=== PATIENT | male | born 1950 | race African-American/Black ===

== ENCOUNTER 2021-05-11 10:53 | Inpatient (IN) ==
[2021-05-11 14:51] LABS: Basophils % 0.4 % (0.0-0.8); Eosinophils # 0.1 10*3/uL (0.0-0.87); Eosinophils % 0.9 % (0.00-10.9); Hematocrit 28.6 VOL% (42.0-52.0); Hemoglobin 9.7 GM/DL (14.0-18.0); Immature Granulocytes % 0.6 %; Immature Granulocytes Absolute 0.06 #; Lymphocytes # 1.4 10*3/uL (1.4-4.0); Lymphocytes % 15.1 % (21.2-54.2); Mean Corpuscular HGB Conc 33.9 GM/DL (32-36); Mean Corpuscular Volume 84.9 FL (87-102); Mean Platelet Volume 8.9 FL (9.6-12.0); Monocytes % 6.6 % (1.7-12.7); Neutrophils % 76.4 % (38.7-73.9); Platelet Count 471 T/CUMM (130-400); Red Blood Count 3.37 MC/CUMM (3.8-5.5); Red Cell Distribution Width 12.9 % (9.3-17.3); White Blood Count 9.5 T/CUMM (4-12)
[2021-05-11 15:20] LABS: Albumin 2.1 G/DL (3.4-5.0); Bilirubin,Total 0.6 MG/DL (0.20-1.00); Calcium 8.1 MG/DL (8.5-10.1); Potassium 3.7 MMOL/L (3.5-5.1); Total Protein 7.9 G/DL (6.4-8.2)
[2021-05-11] MEDS ORDERED: ONDANSETRON 4 MG/2 ML VIAL IV PRN (17:22)
[2021-05-11] MEDS ORDERED: LACTULOSE 20 GM/30 ML UDCUP PO PRN (17:22)
[2021-05-11] MEDS ORDERED: SIMETHICONE CHEW 125 MG TABLET PO PRN (17:22)
[2021-05-11] MEDS ORDERED: DOCUSATE SODIUM 100 MG CAPSULE PO PRN (17:22)
[2021-05-11] MEDS ORDERED: ALBUTEROL 2.5 MG/3 ML NEB RESP TX PRN (17:22)
[2021-05-11] MEDS ORDERED: GLUCAGON 1 MG VIAL IM PRN (17:22)
[2021-05-11] MEDS ORDERED: ALUMINUM/MAGNES/SIMETH MAX STR 30 ML UDCUP PO PRN (17:22)
[2021-05-11] MEDS ORDERED: DEXTROSE 10% 250 ML BAG IV PRN (17:31)
[2021-05-11] MEDS ORDERED: LACTATED RINGERS 1,000 ML IV SCH (18:00)
[2021-05-11 18:39] LABS: Bilirubin,Urine Negative (Negative); Blood, Urine Negative (Negative); Glucose,Urine (UA) 100 mg/dL (Negative); Ketones,Urine Negative (Negative); Nitrite,Urine Negative (Negative); Protein,Urine Negative (Negative); Urine Appearance Clear (Clear); Urine Color Dark Yellow (Yellow); Urine Urobilinogen > 8.0 eU/dL (<2.0)
[2021-05-11 18:41] LABS: Mucus,Urine Occasional /LPF (Occasional); RBC,Urine 2 /HPF (0-4); Squamous Epithelial Cell,Urine Occasional /HPF (0-10)
[2021-05-11 18:46] LABS: Barbiturates Screen,Urine Negative (Negative); Benzodiazepines Screen,Urine Negative (Negative); Cannabinoid Screen,Urine Negative (Negative); Opiate Screen,Urine Negative (Negative); Phencyclidine Screen,Urine Negative (Negative)
[2021-05-11] MEDS: MULTIVITAMIN INJ 10 ML in DEXTROSE 5% NACL 0.45% 1,000 ML IV SCH (21:10)
[2021-05-11] MEDS: LORazepam 2 MG/1 ML VIAL IV PRN (21:11)
[2021-05-11] MEDS ORDERED: OLANZapine 10 MG VIAL IM ONE (21:46)
[2021-05-11] MEDS: HYDROmorphone 1 MG/1 ML SYRINGE IV PRN (21:58)
[2021-05-12] MEDS: HYDROmorphone 1 MG/1 ML SYRINGE IV PRN ×2 (02:42→07:10)
[2021-05-12 05:16] LABS: Basophils # 0.1 10*3/uL (0.0-0.2); Basophils % 0.6 % (0.0-0.8); Eosinophils # 0.1 10*3/uL (0.0-0.87); Eosinophils % 1.5 % (0.00-10.9); Hemoglobin 9.4 GM/DL (14.0-18.0); Immature Granulocytes % 0.5 %; Immature Granulocytes Absolute 0.04 #; Lymphocytes # 1.8 10*3/uL (1.4-4.0); Lymphocytes % 22.2 % (21.2-54.2); Mean Corpuscular HGB Conc 33.6 GM/DL (32-36); Mean Corpuscular Volume 85.6 FL (87-102); Mean Platelet Volume 8.9 FL (9.6-12.0); Monocytes % 9.3 % (1.7-12.7); Neutrophils % 65.9 % (38.7-73.9); Platelet Count 456 T/CUMM (130-400); Red Blood Count 3.27 MC/CUMM (3.8-5.5); Red Cell Distribution Width 12.8 % (9.3-17.3); White Blood Count 8.1 T/CUMM (4-12)
[2021-05-12 05:59] LABS: Alanine Aminotransferase 67 U/L (16-61); Albumin 1.9 G/DL (3.4-5.0); Alkaline Phosphatase 65 U/L (45-117); Aspartate Amino Transferase 135 U/L (0-37); Bilirubin,Total < 0.39 MG/DL (0.20-1.00); Blood Urea Nitrogen 12 MG/DL (7-18); Calcium 7.7 MG/DL (8.5-10.1); Carbon Dioxide 26 MMOL/L (21-32); Estimated Glom Filtration Rate 129 ML/MIN; Glucose 109 MG/DL (74-106); HDL Cholesterol 27 MG/DL (40-60); Osmolality,Calculated 268.2 MOS/KG (273-304); Potassium 3.7 MMOL/L (3.5-5.1); Risk Ratio 3.89; Sodium 134 MMOL/L (136-145); Total Protein 7.4 G/DL (6.4-8.2); Triglycerides 60 MG/DL (2-150)
[2021-05-12] MEDS: LORazepam 2 MG/1 ML VIAL IV PRN (09:00)
[2021-05-12] MEDS: NICOTINE 21 MG/24 HR PATCH TRANSDERM SCH (12:13)
[2021-05-12] MEDS: PIPERACILLIN/TAZOBACTAM 3,375 MG in SODIUM CHLORIDE 0.9% 100 ML IV SCH ×2 (12:16→21:48)
[2021-05-12] MEDS: PANTOPRAZOLE 40 MG TABLET PO SCH (12:17)
[2021-05-13] MEDS: MULTIVITAMIN INJ 10 ML in DEXTROSE 5% NACL 0.45% 1,000 ML IV SCH ×2 (00:04→22:04)
[2021-05-13] MEDS: PIPERACILLIN/TAZOBACTAM 3,375 MG in SODIUM CHLORIDE 0.9% 100 ML IV SCH ×3 (04:54→22:06)
[2021-05-13 05:22] LABS: Basophils # 0.1 10*3/uL (0.0-0.2); Basophils % 0.7 % (0.0-0.8); Eosinophils # 0.1 10*3/uL (0.0-0.87); Eosinophils % 0.9 % (0.00-10.9); Hematocrit 28.1 VOL% (42.0-52.0); Hemoglobin 9.5 GM/DL (14.0-18.0); Immature Granulocytes % 0.7 %; Immature Granulocytes Absolute 0.06 #; Lymphocytes # 1.6 10*3/uL (1.4-4.0); Lymphocytes % 18.5 % (21.2-54.2); Mean Corpuscular HGB Conc 33.8 GM/DL (32-36); Mean Corpuscular Volume 83.1 FL (87-102); Mean Platelet Volume 8.8 FL (9.6-12.0); Monocytes % 8.6 % (1.7-12.7); Neutrophils % 70.6 % (38.7-73.9); Platelet Count 495 T/CUMM (130-400); Red Blood Count 3.38 MC/CUMM (3.8-5.5); Red Cell Distribution Width 12.9 % (9.3-17.3); White Blood Count 8.7 T/CUMM (4-12)
[2021-05-13 05:38] LABS: INR 1.2; PT Patient Result 12.7 SECS (10.5-12.0)
[2021-05-13 05:48] LABS: Eosinophils 1 % (0-10); Hypochromia 1+; Lymphocytes 13 % (20-55); Microcytosis 1+; Platelet Estimate Adequate; Segmented Neutrophils 77 % (50-85); Total Cells Counted 100
[2021-05-13 05:49] LABS: Folate 9.4 NG/ML (5.38-24.0)
[2021-05-13 05:51] LABS: Albumin 1.7 G/DL (3.4-5.0); Bilirubin,Total 0.5 MG/DL (0.20-1.00); Calcium 7.8 MG/DL (8.5-10.1); Osmolality,Calculated 267.2 MOS/KG (273-304); Potassium 3.4 MMOL/L (3.5-5.1); Total Protein 7.2 G/DL (6.4-8.2)
[2021-05-13] MEDS: NICOTINE 21 MG/24 HR PATCH TRANSDERM SCH (08:50)
[2021-05-13] MEDS ORDERED: ENOXAPARIN 40 MG/0.4 ML SYRINGE SUBCUT SCH (09:00)
[2021-05-13] MEDS: PANTOPRAZOLE 40 MG TABLET PO SCH (11:24)
[2021-05-13] MEDS ORDERED: SODIUM CHLORIDE 0.45% 1,000 ML IV SCH (12:30)
[2021-05-13] MEDS ORDERED: HEPARIN/NACL 0.9% 2 UNITS/ML 4,000 UNIT/2,000 ML BAG IV ONE (12:33)
[2021-05-13] MEDS ORDERED: fentaNYL 100 MCG/2 ML VIAL IV ONE (13:00)
[2021-05-13] MEDS ORDERED: MIDAZOLAM 2 MG/2 ML VIAL IV ONE (13:00)
[2021-05-13] MEDS ORDERED: HEPARIN 5,000 UNIT/1 ML VIAL ONE ×2 (14:12→14:14)
[2021-05-13] MEDS ORDERED: HEPARIN 5,000 UNIT/1 ML VIAL IV ONE ×2 (14:52→15:27)
[2021-05-13] MEDS ORDERED: HEPARIN 1,000 UNIT/1 ML VIAL ONE ×2 (15:21→15:45)
[2021-05-13] MEDS ORDERED: HEPARIN 1,000 UNIT/1 ML VIAL IV ONE (15:50)
[2021-05-13] MEDS: POTASSIUM CHLORIDE 10 MEQ TABLET PO SCH (22:03)
[2021-05-13] MEDS: ASPIRIN EC 81 MG TABLET PO SCH (22:03)
[2021-05-13] MEDS: CLOPIDOGREL 75 MG TABLET PO SCH (22:06)
[2021-05-14] MEDS: PIPERACILLIN/TAZOBACTAM 3,375 MG in SODIUM CHLORIDE 0.9% 100 ML IV SCH ×3 (05:21→22:18)
[2021-05-14 05:45] LABS: Basophils % 0.5 % (0.0-0.8); Eosinophils # 0.1 10*3/uL (0.0-0.87); Eosinophils % 0.8 % (0.00-10.9); Hematocrit 27.2 VOL% (42.0-52.0); Hemoglobin 9.1 GM/DL (14.0-18.0); Immature Granulocytes % 0.6 %; Immature Granulocytes Absolute 0.05 #; Lymphocytes # 1.5 10*3/uL (1.4-4.0); Lymphocytes % 17.5 % (21.2-54.2); Mean Corpuscular HGB Conc 33.5 GM/DL (32-36); Mean Platelet Volume 8.9 FL (9.6-12.0); Monocytes % 8.5 % (1.7-12.7); Neutrophils % 72.1 % (38.7-73.9); Platelet Count 448 T/CUMM (130-400); Red Cell Distribution Width 12.9 % (9.3-17.3); White Blood Count 8.8 T/CUMM (4-12)
[2021-05-14 06:10] LABS: Albumin 1.6 G/DL (3.4-5.0); Bilirubin,Total 0.4 MG/DL (0.20-1.00); Osmolality,Calculated 264.5 MOS/KG (273-304); Potassium 3.5 MMOL/L (3.5-5.1); Total Protein 6.8 G/DL (6.4-8.2)
[2021-05-14] MEDS ORDERED: propofoL 200 MG/20 ML VIAL IV ONE (09:41)
[2021-05-14] MEDS ORDERED: LIDOCAINE 2% 5 ML VIAL ONE (09:41)
[2021-05-14] MEDS ORDERED: ROCURONIUM 50 MG/5 ML VIAL IV ONE (09:41)
[2021-05-14] MEDS ORDERED: MIDAZOLAM 2 MG/2 ML VIAL ONE (09:41)
[2021-05-14] MEDS ORDERED: fentaNYL 250 MCG/5 ML VIAL ONE (09:42)
[2021-05-14] MEDS ORDERED: DEXAMETHASONE 4 MG/1 ML VIAL ONE (09:43)
[2021-05-14] MEDS ORDERED: ROPIVACAINE 0.5% 30 ML VIAL ONE (09:43)
[2021-05-14] MEDS ORDERED: PHENYLEPHRINE 10 MG/1 ML VIAL IV ONE (10:54)
[2021-05-14] MEDS ORDERED: KETOROLAC 30 MG/1 ML VIAL ONE (10:54)
[2021-05-14] MEDS ORDERED: SEVOFLURANE 1 UNIT/15 MINUTE INH ONE (11:10)
[2021-05-14] MEDS ORDERED: PHENYLEPHRINE 1 MG/10 ML SYRINGE IV ONE (11:11)
[2021-05-14] MEDS ORDERED: HYDROmorphone 1 MG/1 ML SYRINGE IV PRN (11:26)
[2021-05-14] MEDS ORDERED: oxyCODONE/ACETAMINOPHEN 5-325 MG TABLET PO PRN ×2 (11:26)
[2021-05-14] MEDS ORDERED: flumazeniL 0.5 MG/5 ML VIAL IV ONE (12:46)
[2021-05-14] MEDS ORDERED: LACTATED RINGERS 1,000 ML IV SCH (13:00)
[2021-05-14] MEDS ORDERED: NALOXONE 0.4 MG/ML VIAL ONE (13:21)
[2021-05-14] MEDS ORDERED: SUGAMMADEX 200 MG/2 ML VIAL IV ONE ×2 (13:25→13:32)
[2021-05-14] MEDS ORDERED: NALOXONE 0.4 MG/ML VIAL IV ONE (13:29)
[2021-05-14] MEDS: CLOPIDOGREL 75 MG TABLET PO SCH (14:51)
[2021-05-14] MEDS: ASPIRIN EC 81 MG TABLET PO SCH (14:51)
[2021-05-14] MEDS: PANTOPRAZOLE 40 MG TABLET PO SCH (14:51)
[2021-05-14] MEDS: POTASSIUM CHLORIDE 10 MEQ TABLET PO SCH ×2 (14:51→22:17)
[2021-05-14] MEDS: NICOTINE 21 MG/24 HR PATCH TRANSDERM SCH (15:00)
[2021-05-14] MEDS: KETOROLAC 10 MG TABLET PO SCH ×2 (15:25→22:18)
[2021-05-14] MEDS ORDERED: NALOXONE 0.4 MG/ML VIAL IV PRN (16:39)
[2021-05-14] MEDS: SODIUM CHLORIDE 0.9% 1,000 ML IV SCH (16:50)
[2021-05-14 17:10] LABS: Arterial Base Excess iSTAT 3 MMOL/L (-2.5-2.5); Arterial Bicarbonate iSTAT 26.4 MMOL/L (20-26); Arterial O2 Saturation iSTAT 98 % (95-100); Arterial PCO2 iSTAT 35 MM HG (35-48); Arterial PO2 iSTAT 99 MM HG (80-95); Arterial Total CO2 iSTAT 27 MMO/L (23-27); Arterial pH iSTAT 7.482 (7.35-7.45)
[2021-05-14] MEDS: MULTIVITAMIN INJ 10 ML in DEXTROSE 5% NACL 0.45% 1,000 ML IV SCH (22:22)
[2021-05-15] MEDS: KETOROLAC 10 MG TABLET PO SCH ×4 (04:39→22:15)
[2021-05-15] MEDS: PIPERACILLIN/TAZOBACTAM 3,375 MG in SODIUM CHLORIDE 0.9% 100 ML IV SCH ×3 (04:40→22:15)
[2021-05-15 06:12] LABS: Basophils % 0.3 % (0.0-0.8); Eosinophils % 0.2 % (0.00-10.9); Hematocrit 25.2 VOL% (42.0-52.0); Hemoglobin 8.4 GM/DL (14.0-18.0); Immature Granulocytes % 0.4 %; Immature Granulocytes Absolute 0.04 #; Lymphocytes # 2.1 10*3/uL (1.4-4.0); Lymphocytes % 18.9 % (21.2-54.2); Mean Corpuscular HGB Conc 33.3 GM/DL (32-36); Mean Corpuscular Volume 85.4 FL (87-102); Mean Platelet Volume 8.9 FL (9.6-12.0); Monocytes % 8.1 % (1.7-12.7); Neutrophils % 72.1 % (38.7-73.9); Platelet Count 446 T/CUMM (130-400); Red Blood Count 2.95 MC/CUMM (3.8-5.5); Red Cell Distribution Width 13.2 % (9.3-17.3); White Blood Count 11.1 T/CUMM (4-12)
[2021-05-15 06:31] LABS: Alanine Aminotransferase 45 U/L (16-61); Albumin 1.5 G/DL (3.4-5.0); Alkaline Phosphatase 62 U/L (45-117); Aspartate Amino Transferase 97 U/L (0-37); Bilirubin,Total < 0.39 MG/DL (0.20-1.00); Blood Urea Nitrogen 19 MG/DL (7-18); Calcium 8.1 MG/DL (8.5-10.1); Carbon Dioxide 27 MMOL/L (21-32); Estimated Glom Filtration Rate 128 ML/MIN; Glucose 98 MG/DL (74-106); Potassium 4.2 MMOL/L (3.5-5.1); Sodium 136 MMOL/L (136-145); Total Protein 6.7 G/DL (6.4-8.2)
[2021-05-15] MEDS: CLOPIDOGREL 75 MG TABLET PO SCH (09:00)
[2021-05-15] MEDS: POTASSIUM CHLORIDE 10 MEQ TABLET PO SCH ×2 (09:00→22:15)
[2021-05-15] MEDS: PANTOPRAZOLE 40 MG TABLET PO SCH (09:00)
[2021-05-15] MEDS: ASPIRIN EC 81 MG TABLET PO SCH (09:00)
[2021-05-15] MEDS: NICOTINE 21 MG/24 HR PATCH TRANSDERM SCH (09:03)
[2021-05-15] MEDS: SODIUM CHLORIDE 0.9% 1,000 ML IV SCH (09:20)
[2021-05-15] MEDS ORDERED: DEXTROSE 5% NACL 0.45% 1,000 ML IV SCH (09:30)
[2021-05-15] MEDS: HYDROmorphone 1 MG/1 ML SYRINGE IV PRN (10:45)
[2021-05-15] MEDS ORDERED: LACTATED RINGERS 250 ML IV ONE (13:10)
[2021-05-15] MEDS: ACETAMINOPHEN 325 MG TABLET PO PRN (15:41)
[2021-05-15] MEDS: LORazepam 2 MG/1 ML VIAL IV PRN (17:10)
[2021-05-16] MEDS: KETOROLAC 10 MG TABLET PO SCH ×4 (03:15→20:05)
[2021-05-16 05:33] LABS: Basophils # 0.1 10*3/uL (0.0-0.2); Basophils % 0.8 % (0.0-0.8); Eosinophils # 0.1 10*3/uL (0.0-0.87); Eosinophils % 1.8 % (0.00-10.9); Hematocrit 24.5 VOL% (42.0-52.0); Immature Granulocytes % 0.5 %; Immature Granulocytes Absolute 0.04 #; Lymphocytes # 1.7 10*3/uL (1.4-4.0); Lymphocytes % 21.5 % (21.2-54.2); Mean Corpuscular HGB Conc 32.7 GM/DL (32-36); Mean Corpuscular Volume 85.4 FL (87-102); Monocytes % 7.2 % (1.7-12.7); Neutrophils % 68.2 % (38.7-73.9); Platelet Count 443 T/CUMM (130-400); Red Blood Count 2.87 MC/CUMM (3.8-5.5); Red Cell Distribution Width 13.1 % (9.3-17.3); White Blood Count 7.9 T/CUMM (4-12)
[2021-05-16 05:51] LABS: Alanine Aminotransferase 48 U/L (16-61); Albumin 1.4 G/DL (3.4-5.0); Alkaline Phosphatase 56 U/L (45-117); Aspartate Amino Transferase 85 U/L (0-37); Bilirubin,Total < 0.39 MG/DL (0.20-1.00); Blood Urea Nitrogen 17 MG/DL (7-18); Calcium 7.5 MG/DL (8.5-10.1); Carbon Dioxide 26 MMOL/L (21-32); Estimated Glom Filtration Rate 121 ML/MIN; Glucose 90 MG/DL (74-106); Sodium 136 MMOL/L (136-145); Total Protein 6.3 G/DL (6.4-8.2)
[2021-05-16] MEDS: PIPERACILLIN/TAZOBACTAM 3,375 MG in SODIUM CHLORIDE 0.9% 100 ML IV SCH ×3 (06:03→20:06)
[2021-05-16 06:05] LABS: Hypochromia 1+; Microcytosis Slight; Platelet Estimate Increased
[2021-05-16] MEDS: ASPIRIN EC 81 MG TABLET PO SCH (09:05)
[2021-05-16] MEDS: PANTOPRAZOLE 40 MG TABLET PO SCH (09:07)
[2021-05-16] MEDS: LACTATED RINGERS 1,000 ML IV SCH (09:07)
[2021-05-16] MEDS: CLOPIDOGREL 75 MG TABLET PO SCH (09:07)
[2021-05-16] MEDS: POTASSIUM CHLORIDE 10 MEQ TABLET PO SCH ×2 (09:07→20:06)
[2021-05-16] MEDS: MULTIVITAMIN (CENTRUM) TABLET PO SCH (09:07)
[2021-05-16] MEDS: NICOTINE 21 MG/24 HR PATCH TRANSDERM SCH (09:10)
[2021-05-16] MEDS: ENOXAPARIN 40 MG/0.4 ML SYRINGE SUBCUT SCH (09:10)
[2021-05-16] MEDS: HYDROmorphone 1 MG/1 ML SYRINGE IV PRN (20:06)
[2021-05-17] MEDS: LACTATED RINGERS 1,000 ML IV SCH ×2 (01:53→15:18)
[2021-05-17] MEDS: KETOROLAC 10 MG TABLET PO SCH ×4 (02:02→20:46)
[2021-05-17 05:23] LABS: Basophils # 0.1 10*3/uL (0.0-0.2); Basophils % 1.5 % (0.0-0.8); Eosinophils # 0.2 10*3/uL (0.0-0.87); Eosinophils % 2.9 % (0.00-10.9); Hematocrit 23.5 VOL% (42.0-52.0); Hemoglobin 7.8 GM/DL (14.0-18.0); Immature Granulocytes % 0.5 %; Immature Granulocytes Absolute 0.03 #; Lymphocytes # 1.8 10*3/uL (1.4-4.0); Lymphocytes % 28.6 % (21.2-54.2); Mean Corpuscular HGB Conc 33.2 GM/DL (32-36); Mean Corpuscular Volume 85.8 FL (87-102); Mean Platelet Volume 8.9 FL (9.6-12.0); Monocytes % 8.7 % (1.7-12.7); Neutrophils % 57.8 % (38.7-73.9); Platelet Count 460 T/CUMM (130-400); Red Blood Count 2.74 MC/CUMM (3.8-5.5); Red Cell Distribution Width 13.1 % (9.3-17.3); White Blood Count 6.2 T/CUMM (4-12)
[2021-05-17] MEDS: PIPERACILLIN/TAZOBACTAM 3,375 MG in SODIUM CHLORIDE 0.9% 100 ML IV SCH ×2 (05:33→12:22)
[2021-05-17 05:47] LABS: Alanine Aminotransferase 45 U/L (16-61); Albumin 1.4 G/DL (3.4-5.0); Alkaline Phosphatase 61 U/L (45-117); Aspartate Amino Transferase 70 U/L (0-37); Bilirubin,Total < 0.39 MG/DL (0.20-1.00); Blood Urea Nitrogen 11 MG/DL (7-18); Calcium 7.8 MG/DL (8.5-10.1); Carbon Dioxide 26 MMOL/L (21-32); Estimated Glom Filtration Rate 128 ML/MIN; Glucose 88 MG/DL (74-106); Osmolality,Calculated 276.4 MOS/KG (273-304); Potassium 3.9 MMOL/L (3.5-5.1); Sodium 140 MMOL/L (136-145); Total Protein 6.1 G/DL (6.4-8.2)
[2021-05-17 08:51] LABS: % Iron Saturation 14.2 % (18-50); Ferritin 418.4 ng/mL (26-388)
[2021-05-17] MEDS: NICOTINE 21 MG/24 HR PATCH TRANSDERM SCH (09:02)
[2021-05-17] MEDS: ENOXAPARIN 40 MG/0.4 ML SYRINGE SUBCUT SCH (09:03)
[2021-05-17] MEDS: ASPIRIN EC 81 MG TABLET PO SCH (09:03)
[2021-05-17] MEDS: MULTIVITAMIN (CENTRUM) TABLET PO SCH (09:03)
[2021-05-17] MEDS: CLOPIDOGREL 75 MG TABLET PO SCH (09:04)
[2021-05-17] MEDS: PANTOPRAZOLE 40 MG TABLET PO SCH (09:04)
[2021-05-17] MEDS: POTASSIUM CHLORIDE 10 MEQ TABLET PO SCH ×2 (09:04→20:46)
[2021-05-17] MEDS: HYDROmorphone 1 MG/1 ML SYRINGE IV PRN (21:39)
[2021-05-18] MEDS: LACTATED RINGERS 1,000 ML IV SCH ×2 (02:44→14:56)
[2021-05-18] MEDS: KETOROLAC 10 MG TABLET PO SCH ×3 (02:44→15:05)
[2021-05-18 05:18] LABS: Basophils # 0.1 10*3/uL (0.0-0.2); Basophils % 1.5 % (0.0-0.8); Eosinophils # 0.2 10*3/uL (0.0-0.87); Eosinophils % 3.7 % (0.00-10.9); Hematocrit 22.9 VOL% (42.0-52.0); Hemoglobin 7.6 GM/DL (14.0-18.0); Immature Granulocytes % 0.3 %; Immature Granulocytes Absolute 0.02 #; Lymphocytes # 2.1 10*3/uL (1.4-4.0); Mean Corpuscular HGB Conc 33.2 GM/DL (32-36); Mean Corpuscular Volume 85.8 FL (87-102); Mean Platelet Volume 8.9 FL (9.6-12.0); Monocytes % 8.3 % (1.7-12.7); Neutrophils % 51.2 % (38.7-73.9); Platelet Count 470 T/CUMM (130-400); Red Blood Count 2.67 MC/CUMM (3.8-5.5); Red Cell Distribution Width 13.2 % (9.3-17.3); White Blood Count 5.9 T/CUMM (4-12)
[2021-05-18 05:48] LABS: Calcium 7.8 MG/DL (8.5-10.1); Osmolality,Calculated 281.1 MOS/KG (273-304); Potassium 4.1 MMOL/L (3.5-5.1)
[2021-05-18] MEDS ORDERED: FERRIC GLUCONATE COMPLEX 125 MG in SODIUM CHLORIDE 0.9% 100 ML IV SCH (09:00)
[2021-05-18] MEDS: ENOXAPARIN 40 MG/0.4 ML SYRINGE SUBCUT SCH (09:56)
[2021-05-18] MEDS: NICOTINE 21 MG/24 HR PATCH TRANSDERM SCH (09:56)
[2021-05-18] MEDS: POTASSIUM CHLORIDE 10 MEQ TABLET PO SCH (09:56)
[2021-05-18] MEDS: ACETAMINOPHEN 325 MG TABLET PO PRN (09:57)
[2021-05-18] MEDS: PANTOPRAZOLE 40 MG TABLET PO SCH (09:57)
[2021-05-18] MEDS: ASPIRIN EC 81 MG TABLET PO SCH (09:57)
[2021-05-18] MEDS: CLOPIDOGREL 75 MG TABLET PO SCH (09:57)
[2021-05-18] MEDS: MULTIVITAMIN (CENTRUM) TABLET PO SCH (09:58)
[2021-05-18 16:33] VITALS: BP 142/68
== END 2021-05-18 19:29 | DRG 240 ==
LOC: N.ED 10:53 → SUATTDRO 17:20 → N.EDINP 17:20 → N.5E 05-12 10:30
PROVIDERS: ADMIT Hospitalist; ATTEND Internal Medicine

== ENCOUNTER 2021-06-08 09:56 | Observation (INO) ==
[2021-06-08 16:09] LABS: Alanine Aminotransferase 20 U/L (16-61); Albumin 2.8 G/DL (3.4-5.0); Alkaline Phosphatase 95 U/L (45-117); Aspartate Amino Transferase 18 U/L (0-37); Bilirubin,Total < 0.39 MG/DL (0.20-1.00); Blood Urea Nitrogen 17 MG/DL (7-18); Calcium 8.7 MG/DL (8.5-10.1); Carbon Dioxide 28 MMOL/L (21-32); Chloride 104 MMOL/L (98-107); Estimated Glom Filtration Rate 123 ML/MIN; Glucose 100 MG/DL (74-106); Osmolality,Calculated 276.7 MOS/KG (273-304); Potassium 3.7 MMOL/L (3.5-5.1); Sodium 138 MMOL/L (136-145); Total Protein 8.3 G/DL (6.4-8.2)
[2021-06-08 16:59] LABS: Basophils # 0.1 10*3/uL (0.0-0.2); Basophils % 1.1 % (0.0-0.8); Eosinophils # 0.2 10*3/uL (0.0-0.87); Eosinophils % 2.3 % (0.00-10.9); Hematocrit 28.1 VOL% (42.0-52.0); Hemoglobin 9.2 GM/DL (14.0-18.0); Immature Granulocytes % 0.4 %; Immature Granulocytes Absolute 0.03 #; Lymphocytes # 2.7 10*3/uL (1.4-4.0); Lymphocytes % 37.5 % (21.2-54.2); Mean Corpuscular HGB Conc 32.7 GM/DL (32-36); Mean Corpuscular Volume 85.4 FL (87-102); Monocytes # 0.6 10*3/uL (0.11-0.8); Monocytes % 8.6 % (1.7-12.7); Neutrophils % 50.1 % (38.7-73.9); Platelet Count 352 T/CUMM (130-400); Red Blood Count 3.29 MC/CUMM (3.8-5.5); Red Cell Distribution Width 14.7 % (9.3-17.3); White Blood Count 7.1 T/CUMM (4-12)
[2021-06-08] MEDS ORDERED: ACETAMINOPHEN 325 MG TABLET PO PRN (18:05)
[2021-06-08] MEDS ORDERED: ONDANSETRON 4 MG/2 ML VIAL IV PRN (18:05)
[2021-06-08] MEDS ORDERED: LABETALOL 20 MG/4 ML SYRINGE IV PRN (18:05)
[2021-06-08 20:46] LABS: Hyaline Casts,Urine 11 /LPF (0-3); Mucus,Urine Many /LPF (Occasional); Squamous Epithelial Cell,Urine Occasional /HPF (0-10)
[2021-06-08 20:48] LABS: Urine Appearance Clear (Clear); Urine Color Yellow (Yellow); Urine Specific Gravity >= 1.030 (1.001-1.035); Urine pH 5.5 (4.5-8.0)
[2021-06-08 20:49] LABS: Bilirubin,Urine Negative (Negative); Blood, Urine Negative (Negative); Glucose,Urine (UA) Negative (Negative); Ketones,Urine Negative (Negative); Nitrite,Urine Negative (Negative); Protein,Urine Negative (Negative); Urine Urobilinogen 0.2 eU/dL (<2.0)
[2021-06-08 21:08] LABS: Barbiturates Screen,Urine Negative (Negative); Benzodiazepines Screen,Urine Negative (Negative); Cannabinoid Screen,Urine Negative (Negative); Opiate Screen,Urine Negative (Negative); Phencyclidine Screen,Urine Negative (Negative)
[2021-06-08] MEDS: ENOXAPARIN 40 MG/0.4 ML SYRINGE SUBCUT SCH (22:26)
[2021-06-09 06:42] LABS: Basophils # 0.1 10*3/uL (0.0-0.2); Basophils % 1.2 % (0.0-0.8); Eosinophils # 0.2 10*3/uL (0.0-0.87); Eosinophils % 3.5 % (0.00-10.9); Hematocrit 28.4 VOL% (42.0-52.0); Hemoglobin 9.3 GM/DL (14.0-18.0); Immature Granulocytes % 0.2 %; Immature Granulocytes Absolute 0.01 #; Lymphocytes # 2.1 10*3/uL (1.4-4.0); Lymphocytes % 36.2 % (21.2-54.2); Mean Corpuscular HGB Conc 32.7 GM/DL (32-36); Mean Corpuscular Volume 85.5 FL (87-102); Mean Platelet Volume 8.9 FL (9.6-12.0); Monocytes # 0.4 10*3/uL (0.11-0.8); Monocytes % 7.1 % (1.7-12.7); Neutrophils % 51.8 % (38.7-73.9); Platelet Count 335 T/CUMM (130-400); Red Blood Count 3.32 MC/CUMM (3.8-5.5); Red Cell Distribution Width 14.6 % (9.3-17.3); White Blood Count 5.8 T/CUMM (4-12)
[2021-06-09 07:03] LABS: Target Cells Few
[2021-06-09 07:04] LABS: Microcytosis Slight
[2021-06-09 07:05] LABS: Hypochromia Slight
[2021-06-09 07:12] LABS: Alanine Aminotransferase 17 U/L (16-61); Albumin 2.5 G/DL (3.4-5.0); Alkaline Phosphatase 89 U/L (45-117); Aspartate Amino Transferase 15 U/L (0-37); Bilirubin,Total < 0.39 MG/DL (0.20-1.00); Blood Urea Nitrogen 16 MG/DL (7-18); Calcium 8.7 MG/DL (8.5-10.1); Carbon Dioxide 28 MMOL/L (21-32); Chloride 108 MMOL/L (98-107); Cholesterol 151 MG/DL (50-200); Estimated Glom Filtration Rate 123 ML/MIN; Glucose 90 MG/DL (74-106); HDL Cholesterol 45 MG/DL (40-60); Osmolality,Calculated 277.5 MOS/KG (273-304); Potassium 3.8 MMOL/L (3.5-5.1); Risk Ratio 3.36; Sodium 139 MMOL/L (136-145); Total Protein 7.7 G/DL (6.4-8.2); Triglycerides 51 MG/DL (2-150); VLDL Cholesterol 10.2 MG/DL
[2021-06-09] MEDS: PANTOPRAZOLE 40 MG TABLET PO SCH (08:47)
[2021-06-09] MEDS: ASPIRIN 325 MG TABLET PO SCH (08:47)
[2021-06-09] MEDS: MULTIVITAMIN LIQUID (CENTRUM) 60 ML BOTTLE PO SCH (17:00)
[2021-06-09] MEDS: THIAMINE 100 MG TABLET PO SCH (17:00)
[2021-06-09] MEDS: FOLIC ACID 1 MG TABLET PO SCH (17:00)
[2021-06-09] MEDS: ENOXAPARIN 40 MG/0.4 ML SYRINGE SUBCUT SCH (20:57)
[2021-06-10] MEDS: PANTOPRAZOLE 40 MG TABLET PO SCH (08:42)
[2021-06-10] MEDS: THIAMINE 100 MG TABLET PO SCH (08:42)
[2021-06-10] MEDS: MULTIVITAMIN LIQUID (CENTRUM) 60 ML BOTTLE PO SCH (08:42)
[2021-06-10] MEDS: FOLIC ACID 1 MG TABLET PO SCH (08:42)
[2021-06-10] MEDS: ASPIRIN 325 MG TABLET PO SCH (08:42)
[2021-06-10] MEDS: ROSUVASTATIN 20 MG TABLET PO SCH (12:39)
[2021-06-10] MEDS: ENOXAPARIN 40 MG/0.4 ML SYRINGE SUBCUT SCH (20:19)
[2021-06-11] MEDS: ROSUVASTATIN 20 MG TABLET PO SCH (09:20)
[2021-06-11] MEDS: FOLIC ACID 1 MG TABLET PO SCH (09:20)
[2021-06-11] MEDS: THIAMINE 100 MG TABLET PO SCH (09:20)
[2021-06-11] MEDS: PANTOPRAZOLE 40 MG TABLET PO SCH (09:20)
[2021-06-11] MEDS: ASPIRIN 325 MG TABLET PO SCH (09:20)
[2021-06-11] MEDS: MULTIVITAMIN LIQUID (CENTRUM) 60 ML BOTTLE PO SCH (09:29)
[2021-06-11 11:50] VITALS: BP 104/50
== END 2021-06-11 13:27 | disposition home health service (06) ==
LOC: N.EDINP 09:56 → N.ED 09:56 → N.3E 21:00
PROVIDERS: ADMIT Internal Medicine; ATTEND Internal Medicine